=== PATIENT | male | born 1960 | race Caucasian/White ===

== ENCOUNTER 2017-01-29 11:17 | Emergency (ER) | payer OTHER ==
[~2017-01-29] VITALS: Ht 175.3 cm; Wt 106.6 kg
--- NOTE | 2017-01-29 12:19 | PHYS DOC ---
Past History Past Medical History: No Pertinent History Past Surgical History: No Surgical History Additional Smoking Information: one pack a day, hasnt smoked since thursday Alcohol Use: None Drug Use: None Adult General Chief Complaint Chief Complaint: COUGH HPI HPI Patient is a 56 year old male who presents with shortness of breath and cough. He states his been going on for last several days. States he's wheezing at times. He denies any chest pain. 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 You feel well. He denies any fevers or chills. He states his nephew came home and never been a family sick now with the same symptoms. Review of Systems Review of Systems Constitutional: Denies fever or chills [] Eyes: Denies change in visual acuity, redness, or eye pain [] HENT: Denies nasal congestion or sore throat [] Respiratory: Denies cough or shortness of breath [] Cardiovascular: No additional information not addressed in HPI [] GI: Denies abdominal pain, nausea, vomiting, bloody stools or diarrhea [] : Denies dysuria or hematuria [] Musculoskeletal: Denies back pain or joint pain [] Integument: Denies rash or skin lesions [] Neurologic: Denies headache, focal weakness or sensory changes [] Endocrine: Denies polyuria or polydipsia [] All other systems were reviewed and found to be within normal limits, except as documented in this note. Allergies Allergies Allergies Coded Allergies Type Severity Reaction Last Updated Verified No Known Drug Allergies 01/29/17 No Physical Exam Physical Exam Constitutional: Well developed, well nourished, no acute distress, non-toxic appearance. [] HENT: Normocephalic, atraumatic, bilateral external ears normal, oropharynx moist, no oral exudates, nose normal. [] Eyes: PERRLA, EOMI, conjunctiva normal, no discharge. [] Neck: Normal range of motion, no tenderness, supple, no stridor. [] Cardiovascular:Heart rate regular rhythm, no murmur [] Lungs & Thorax: Bilateral breath sounds clear to auscultation [] Abdomen: Bowel sounds normal, soft, no tenderness, no masses, no pulsatile masses. [] Skin: Warm, dry, no erythema, no rash. [] Back: No tenderness, no CVA tenderness. [] Extremities: No tenderness, no cyanosis, no clubbing, ROM intact, no edema. [] Neurologic: Alert and oriented X 3, normal motor function, normal sensory function, no focal deficits noted. [] Psychologic: Affect normal, judgement normal, mood normal. [] Current Patient Data Vital Signs Vital Signs Date Time Temp Pulse Resp B/P (MAP) Pulse Ox O2 Delivery O2 Flow Rate FiO2 01/29/17 11:46 98.9 92 20 91 Room Air EKG EKG EKG shows sinus rhythm with rate of [address] elevations, T-wave inversions noted in aVL, right axis deviation noted, QTC 420 ms, as interpreted by me. Radiology/Procedures Radiology/[place] [address] IMAGING REPORT Signed PATIENT: NORMA MORGAN ACCOUNT: [id number] : 1960 LOCATION: ER AGE: 56 SEX: M EXAM STATUS: REG ER ORD. PHYSICIAN: JEAN CARLOS BORRERO MD REASON: soa PROCEDURE: CHEST PA & LATERAL CHEST PA LATERAL Clinical Indication: Shortness of air Comparison: None. Findings: Low lung volume. Left greater than right perihilar predominantly heterogenous air space opacities. Pulmonary vascular indistinctness. No pleural effusion or pneumothorax. The cardiomediastinal silhouette and great vessels are normal. No acute osseous abnormality. Mild multilevel degenerative changes of the visualized spine. IMPRESSION: Left greater than right perihilar prominent heterogenous air space opacities. Findings are concerning for an infectious process or pulmonary edema. Recommend continued radiographic follow-up to resolution. DICTATED AND SIGNED BY: ИРИНА BENSON MD DATE: 01/29/17 1202 CC: ROSA SHEN MD; JEAN CARLOS BORRERO MD ~ Impressions: Bronchitis Course & Med Decision Making Course & Med Decision Making Pertinent Labs and Imaging studies reviewed. (See chart for details) She doesn't have any chest pain, he does have some wheezing on exam. He received a DuoNeb, he is being discharged with prednisone and albuterol, Levaquin and instructed follow-up with his primary care physician. He is instructed return back to ER if he has worsening shortness breath, orthopnea, or other concerns. Dragon Disclaimer Dragon Disclaimer This electronic medical record was generated, in whole or in part, using a voice recognition dictation system. Departure Departure: Impression: Primary Impression: Bronchitis Referrals: ROSA SHEN MD (PCP) Patient Instructions: Acute Bronchitis Additional Instructions: Chest x-ray shows that you might have an infection in your lungs. Your being discharged home with antibiotics for the next 7 days. He also being discharged with prednisone and albuterol inhaler. Please use these as instructed. You need follow-up with her primary care physician within the next 3-4 days. Return back to ER if you have worsening shortness of breath, chest discomfort, nausea vomiting, or other concerns. Scripts Albuterol Sulfate (PROAIR HFA INHALER) 8.5 Gm Hfa.aer.ad 1 PUFF INH PRN Q6HRS Y for SHORTNESS OF BREATH, #1 INHALER 0 Refills Prov: JEAN CARLOS BORRERO MD 01/29/17 Prednisone (PREDNISONE) 50 Mg Tablet 1 TAB PO DAILY, #5 TAB Prov: JEAN CARLOS BORRERO MD 01/29/17 Levofloxacin (LEVAQUIN) 500 Mg Tablet 1 TAB PO DAILY, #7 TAB Prov: JEAN CARLOS BORRERO MD 01/29/17 JEAN CARLOS BORRERO MD Jan 29, 2017 12:19
--- NOTE | 2017-01-29 12:27 | RAD ---
CHEST PA LATERAL Clinical Indication: Shortness of air Comparison: None. Findings: Low lung volume. Left greater than right perihilar predominantly heterogenous air space opacities. Pulmonary vascular indistinctness. No pleural effusion or pneumothorax. The cardiomediastinal silhouette and great vessels are normal. No acute osseous abnormality. Mild multilevel degenerative changes of the visualized spine. IMPRESSION: Left greater than right perihilar prominent heterogenous air space opacities. Findings are concerning for an infectious process or pulmonary edema. Recommend continued radiographic follow-up to resolution.
[2017-01-29 12:34] LABS: BASO % 1 % (0-3); EOS % 0 % (0-3); HEMATOCRIT 43.1 % (39.0-53.0); LYMPH # 1.4 x10^3/uL (1.0-4.8); LYMPH % 17 % (24-48); MEAN CORPUSCULAR HEMOGLOBIN 33 pg (25-35); MEAN CORPUSCULAR HGB CONC 35 g/dL (31-37); MEAN CORPUSCULAR VOLUME 94 fL (79-100); MONO # 1.1 x10^3/uL (0.0-1.1); MONO % 13 % (0-9); NEUT # 5.7 x10^3uL (1.8-7.7); NEUT % 69 % (31-73); PLATELET COUNT 202 x10^3/uL (140-400); RED CELL DISTRIBUTION WIDTH 13.1 % (11.5-14.5); WHITE BLOOD COUNT 8.3 x10^3/uL (4.0-11.0)
[2017-01-29 12:46] LABS: BARBITURATES NEG (NEG); BENZODIAZEPINES NEG (NEG); CANNABINOIDS NEG (NEG); COCAINE NEG (NEG); METHADONE NEG (NEG); OPIATES NEG (NEG); PHENCYCLIDINE NEG (NEG)
[2017-01-29 12:47] LABS: AMPHETAMINE/METHAMPHETAMINE NEG (NEG)
[2017-01-29] MEDS ORDERED: IPRATRPIUM/ALBUTEROL 0.5/2.5MG 3 ML NEBU. NEB ONE ×2 (12:50)
[2017-01-29 12:51] VITALS: BP 129/66
[2017-01-29 12:51] LABS: BACTERIA,URINE 0 /HPF (0-FEW); BILIRUBIN,URINE NEG (NEG); CLARITY,URINE CLEAR; COLOR,URINE YELLOW; GLUCOSE,URINE NEG (NEG); NITRITE,URINE NEG (NEG); RBC,URINE 0 /HPF (0-2); UROBILINOGEN,URINE 0.2 mg/dL (0.2 mg/dL); WBC,URINE RARE /HPF (0-4)
[2017-01-29 12:52] LABS: SQUAMOUS EPITHELIAL CELL,UR OCC /LPF
[2017-01-29 12:55] LABS: ALBUMIN 3.5 g/dL (3.4-5.0); CALCIUM 8.6 mg/dL (8.5-10.1); CREATININE 0.9 mg/dL (0.7-1.3); DIRECT BILIRUBIN 0.1 mg/dL (0.0-0.2); GFR 86.7; POTASSIUM 3.7 mmol/L (3.5-5.1); TOTAL BILIRUBIN 0.2 mg/dL (0.2-1.0); TOTAL PROTEIN 7.1 g/dL (6.4-8.2)
[2017-01-29] MEDS ORDERED: LEVO500T59 PO (13:21)
[2017-01-29] MEDS ORDERED: PRED50TA PO (13:21)
[2017-01-29] MEDS ORDERED: ALBU8.5H8 INH (13:21)
[2017-01-29] MEDS ORDERED: predniSONE 10 MG TABLET PO ONE (13:30)
[2017-01-29] MEDS ORDERED: levoFLOXacin 500 MG TABLET PO ONE (13:30)
--- NOTE | 2017-01-29 13:47 | EKG ---
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
== END 2017-01-29 13:43 | disposition home or self-care (01) ==
LOC: ER 11:17
DX: J40 Bronchitis, not specified as acute or chronic (principal); F17.210 Nicotine dependence, cigarettes, uncomplicated
CPT/HCPCS: 36415; 71020; 80048; 80076; 80307; 81001; 82553; 83880; 84484; 85025; 93005; 94640; 99285; J7512; J7620; G0479